=== PATIENT | male | born 1975 | race Caucasian/White ===

== ENCOUNTER 2016-10-13 05:52 | Observation (INO) | payer OTHER ==
[2016-10-11 13:43] VITALS: BMI 33.3
[2016-10-13] MEDS ORDERED: SODIUM CHLORIDE 0.9% 1,000 ML IV SCH (06:03)
[2016-10-13] MEDS ORDERED: ceFAZolin 2 GM in SODIUM CHLORIDE 0.9% 100 ML IVPB ONE (06:03)
[2016-10-13] MEDS ORDERED: ceFAZolin 1,000 MG in SODIUM CHLORIDE 0.9% IRRIGATIO 250 ML IRRIGATION ONE (06:03)
[2016-10-13] MEDS ORDERED: LACTATED RINGERS 1,000 ML IV SCH (06:03)
[2016-10-13] MEDS ORDERED: MIDAZOLAM 2 MG/2 ML VIAL ONE (07:24)
[2016-10-13] MEDS ORDERED: fentaNYL (PF) 50 MCG/ML 2 ML AMP ONE (07:24)
[2016-10-13] MEDS ORDERED: SUCCINYLCHOLINE CHLORIDE 100 MG/5 ML SYR IV ONE (07:24)
[2016-10-13] MEDS ORDERED: LIDOCAINE 1% INJ 10MG/ML (20 ML MDV) ONE (07:24)
[2016-10-13] MEDS ORDERED: ePHEDrine 50 MG/ML 1 ML AMP ONE (07:24)
[2016-10-13] MEDS ORDERED: PROPOFOL 10 MG/ML 20 ML VIAL IV ONE (07:24)
[2016-10-13] MEDS ORDERED: IOHEXOL 350 MG/ML 50ML BOTTLE INJ ONE (08:08)
[2016-10-13] MEDS ORDERED: SODIUM CHLORIDE 0.9% 500 ML IV ONE (08:25)
[2016-10-13] MEDS ORDERED: LIDOCAINE 1% INJ 10MG/ML (10 ML MDV) SQ ONE (08:31)
[2016-10-13] MEDS ORDERED: HYDROcodone/APAP 5-325MG 1 EACH TAB PO PRN (09:59)
[2016-10-13] MEDS ORDERED: ACETAMINOPHEN IV (For NPO) 1,000 MG in EMPTY BAG 1 BAG IVPB ONE (09:59)
[2016-10-13] MEDS ORDERED: LACTATED RINGERS 1,000 ML IV ONE (10:00)
[2016-10-13] MEDS ORDERED: LIDOCAINE 1% INJ 10MG/ML (20 ML MDV) SQ ONE (10:10)
--- NOTE | 2016-10-13 10:18 | P.PCN ---
Preoperative Diagnosis: Loop explant under general anesthesia. Patient was brought to the EP lab in a fasting state. Written informed consent was obtained prior to the procedure. The subcutaneous device was successfully explanted under local anesthesia. Preoperative antibiotics were administered. The wound was closed in layers and dressed per protocol. Result: Successful loop monitor explantation.
--- NOTE | 2016-10-13 10:27 | CE ---
DATE OF SERVICE: A 40-year-old male patient who has a loop monitor implanted for episodes of possible altered consciousness. The patient has Down's syndrome and is unable to give a clear history. The loop monitor showed several episodes of sinus pauses and sinus arrest greater than 6 seconds. He has underlying right bundle branch block on QRS morphology. He is brought in for dual-chamber pacemaker implantation. The patient was brought to the EP Lab in a fasting state. Written informed consent was obtained prior to the procedure. The left shoulder area was prepped and draped as per protocol. The procedure was performed under general anesthesia. The incision was made in the deltopectoral groove and carried down to level of the pectoralis muscle, left anterior vein access was obtained, subfascial pocket was made, two leads are positioned in the right heart. The atrial lead was a [employer] 45 cm in [employer] MRI, model #7740, serial number [id number]. The P-waves were 2.3 mV, pacing threshold 0.6 v at 0.4 ms, pacing impedance of 831 ohms. The 10 v test was negative. The RV lead was a [employer] MRI RV lead, 59 cm in length and model #7742, serial #[id number]. The R waves were 12 mV, pacing threshold 0.4 v at 0.4 ms, pacing impedance of 1075 ohms. Terminal tests are negative. Both leads were secured to the underlying pectoralis fascia using 2 nonabsorbable sutures. Pocket was irrigated with antibiotic solution. Leads are connected to the generator, [employer] accolade MRI, model #L331, serial #[id number]. The lead and the generator were placed in the subfascial pocket. The wound was closed in 3 layers and dressed per protocol. 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 Patient tolerated the procedure well without any acute complications.
--- NOTE | 2016-10-13 10:31 | LTR ---
October 13, 2016 RE: Silviano Quiñones Dear Juan C; I had the pleasure of seeing Gage Quiñones in electrophysiology and follow up. Gage underwent a dual-chamber pacemaker implantation for recurrent episodes of sinus pauses greater than 3 seconds. He has an underlying right bundle branch block, I implanted a dual chamber pacemaker for him successfully under general anesthesia. He will be admitted for a night on telemetry and then he will be discharged home tomorrow after completion of his IV antibiotics. Thank you for entrusting me with the care of your patient. Warm regards. Sincerely, JEFERSON URIOSTEGUI MD
[2016-10-13 10:51] VITALS: RESP 16
[2016-10-13] MEDS ORDERED: ONDANSETRON 4 MG/2 ML VIAL ONE (13:02)
[2016-10-13] MEDS ORDERED: ONDANSETRON 4 MG/2 ML VIAL IVP PRN (13:06)
[2016-10-13] MEDS: ceFAZolin 2 GM in SODIUM CHLORIDE 0.9% 100 ML IVPB SCH ×2 (15:53→21:51)
[2016-10-13] MEDS: ACETAMINOPHEN TAB 325 MG TAB PO PRN (21:00)
[2016-10-14] MEDS: ceFAZolin 2 GM in SODIUM CHLORIDE 0.9% 100 ML IVPB SCH (03:10)
[2016-10-14 04:25] VITALS: PULSE 62; TEMP 97.7
[2016-10-14] MEDS: ACETAMINOPHEN TAB 325 MG TAB PO PRN (06:03)
[2016-10-14] MEDS ORDERED: LEVOTHYROXINE 50 MCG TAB PO SCH (06:30)
--- NOTE | 2016-10-14 08:02 | XR ---
EXAMINATION TYPE: XR chest 2V DATE OF EXAM: 10/14/2016 6:14 AM COMPARISON: NONE TECHNIQUE: PA and lateral views submitted. HISTORY: Pacemaker placement FINDINGS: The lungs are clear and there is no pneumothorax, pleural effusion, or focal pneumonia. Postoperati ve changes are seen double lead pacemaker. Position appears satisfactory. IMPRESSION: 1. No postprocedural complication.
[2016-10-14 08:07] VITALS: BP 137/76
--- NOTE | 2016-10-14 08:32 | DS ---
DATE OF ADMISSION: 10/14/2016 DATE OF DISCHARGE: Silviano Quiñones is a 40-year-old male patient with Down's syndrome with VSD, status post VSD repair many years back with mild cardiomyopathy and an underlying right bundle branch block with a Loop monitor implant for possible syncopal spells. Loop monitor showed episodes of sinus pauses and sinus arrest and therefore, dual-chamber pacemaker was implanted yesterday. He is doing well from a cardiac standpoint. His vitals are stable. He has minimal pain. Blood pressure is 117/69 mmHg, pulse rate is in the 60s. He is afebrile, 97 degree Fahrenheit. Head and neck examination is normal. Heart sounds S1, S2 normal. Breath sounds are equal bilaterally. Abdomen is soft and nontender. Pacer site has healed well. There is no hematoma. IMPRESSION: 1. Sick sinus syndrome, sinus pauses and sinus arrest, status post dual chamber pacemaker implantation. 2. Down syndrome. 3. VSD status post repair many years back, open heart surgery. 4. Mild cardiomyopathy. 5. Right bundle branch block pattern and QRS. SUGGEST: Start Toprol-XL 25 mg daily since he does have a cardiomyopathy to his current regimen and follow up in the office in 5 days. All instructions were given to the parents and was also explained to the patient.
[2016-10-14] MEDS ORDERED: METOPROLOL SUCCINATE (ER) 50 MG TAB.ER.24H PO SCH (09:00)
[2016-10-14] MEDS ORDERED: COLCHICIN-PROBENECID 0.5-500MG 1 EACH TAB PO SCH (09:00)
[2016-10-14] MEDS ORDERED: CHOLECALCIFEROL 1,000 UNIT TAB PO SCH (12:00)
[2016-10-14] MEDS ORDERED: MULTIVITAMINS, THERA 1 EACH TAB PO SCH (12:00)
== END 2016-10-14 10:50 | disposition home or self-care (01) ==
LOC: CATHEP 05:52 → 3OBS 17:28 → CATHEP 10-14 06:13 → 3OBS 10-14 06:13
PROVIDERS: ADMIT Internal Medicine Clinical Cardiac Electrophysiology; ATTEND Internal Medicine Clinical Cardiac Electrophysiology
DX: I49.5 Sick sinus syndrome (principal); Q90.9 Down syndrome, unspecified; Q21.0 Ventricular septal defect; I42.9 Cardiomyopathy, unspecified; I45.10 Unspecified right bundle-branch block; Z87.74 Personal history of (corrected) congenital malformations of heart and circulatory system; I45.5 Other specified heart block; Z88.0 Allergy status to penicillin; Z88.2 Allergy status to sulfonamides; Z79.899 Other long term (current) drug therapy; Z82.49 Family history of ischemic heart disease and other diseases of the circulatory system; E03.9 Hypothyroidism, unspecified; I44.4 Left anterior fascicular block
CPT/HCPCS: 33208; C1785; C1898; 71020; 84132; 96365; 96366

== ENCOUNTER → 2017-07-03 | Outpatient (CLI) | payer OTHER ==
--- NOTE | 2017-07-03 16:31 | US ---
EXAMINATION TYPE: US kidneys/renal and bladder DATE OF EXAM: 07/03/2017 COMPARISON: NONE CLINICAL HISTORY: R94.4 ABN KIDNEY FUNCTIONS. Down syndrome EXAM MEASUREMENTS: Right Kidney: 9.0 x 4.1 x 4.2 cm Left Kidney: 9.6 x 4.3 x 4.7 cm Post Void Residual Volume: 36.4 mL Right Kidney: No hydronephrosis or masses seen Left Kidney: No hydronephrosis or masses seen Bladder: wnl Bilateral Jets seen: left side seen Normal Post Void Residual: Yes There is no evidence for hydronephrosis at this point in time. No nephrolithiasis is seen. No thuy s are identified. The urinary bladder is anechoic. Bilateral ureteral jets are seen. IMPRESSION: 1. Normal renal ultrasound. 2. Right renal jet was not identified during this examination. No abnormal right renal collecting sys tem is evident however.
== END | disposition home or self-care (01) ==
LOC: RADUSWWP 13:57
PROVIDERS: ATTEND Family Medicine
DX: R94.4 Abnormal results of kidney function studies (principal)
CPT/HCPCS: 76770

== ENCOUNTER 2019-07-28 15:14 | Observation (INO) | payer OTHER ==
[2019-07-28] MEDS ORDERED: ASPIRIN 81 MG PO STA (15:46)
[2019-07-28] MEDS ORDERED: NITROGLYCERIN OINT 1 INCH/GM PACKET TOPICAL STA (15:46)
--- NOTE | 2019-07-28 15:51 | ED ---
General Adult HPI - General Chief complaint: Chest Pain Stated complaint: Chest pain Time Seen by Provider: 07/28/19 15:27 Source: family, RN notes reviewed Mode of arrival: wheelchair Limitations: no limitations - History of Present Illness Initial comments: Patient is a pleasant 43-year-old male with history of Down syndrome presenting to emergency department with family for reported chest discomfort. Onset of symptoms was around 1 hour ago. Symptoms have improved and are mild at this time. No reported dyspnea or nausea. Patient was a little bit sweaty earlier. Patient did have similar symptoms around 9 months ago and had stress test howeve r stress test was inconclusive. History is somewhat limited secondary to patient's history of Down syndrome. - Related Data Home Medications Medication Instructions Recorded Confirmed Levothyroxine Sodium [Synthroid] 50 mcg PO DAILY 10/01/13 07/28/19 Cholecalciferol [Vitamin D3] 3,000 unit PO DAILY 01/14/16 07/28/19 Multivitamins, Thera [Multivitamin 1 tab PO DAILY 10/11/16 07/28/19 (formulary)] ALPRAZolam [Xanax] 0.25 mg PO Q6H PRN 07/28/19 07/28/19 Allopurinol [Zyloprim] 300 mg PO DAILY 07/28/19 07/28/19 Ciprofloxacin-Dexameth [Ciprodex 4 drops BOTH EARS BID PRN 07/28/19 07/28/19 Otic Susp] Colchicine [Colcrys] 0.6 mg PO BID PRN 07/28/19 07/28/19 Metoprolol Succinate [Toprol XL] 50 mg PO DAILY 07/28/19 07/28/19 Pravastatin Sodium [Pravachol] 20 mg PO DAILY 07/28/19 07/28/19 Allergies Allergy/AdvReac Type Severity Reaction Status Date / Time clindamycin AdvReac Intermediate reddened Verified 07/28/19 15:55 skin Review of Systems ROS Statement: Those systems with pertinent positive or pertinent negative responses have been documented in the HPI. ROS Other: All systems not noted in ROS Statement are negative. Constitutional: Denies: fever Eyes: Denies: eye pain ENT: Denies: ear pain Respiratory: Denies: cough Cardiovascular: Reports: chest pain Endocrine: Denies: fatigue Genitourinary: Denies: dysuria Musculoskeletal: Denies: back pain Skin: Denies: rash Neurological: Denies: weakness Past Medical History Past Medical History: Hearing Disorder / Deafness, Syncope, Thyroid Disorder Additional Past Medical History / Comment(s): DOWN SYNDROME, HX OF VSD REPAIR AT 4 YEARS OLD., MOTHER STATES HE HAS HX OF PASSING OUT SHE STATES HIS HEART STOPS., gout History of Any Multi-Drug Resistant Organisms: None Reported Past Surgical History: Ear Surgery, Heart Catheterization, Pacemaker Additional Past Surgical History / Comment(s): VSD REPAIR AT 4 YEARS OLD WITH HEART CATH PRIOR. , RECONSTRUTIVE EAR SURGERY. loop recorder Past Anesthesia/Blood Transfusion Reactions: Motion Sickness Type of Cardiac Device: Loop Past Psychological History: Anxiety Smoking Status: Never smoker Past Alcohol Use History: None Reported Past Drug Use History: None Reported - Past Family History Mother Family Medical History: Cancer Additional Family Medical History / Comment(s): BASAL SKIN CANCER General Exam Limitations: no limitations General appearance: alert, in no apparent distress Head exam: Present: normocephalic Eye exam: Present: normal appearance Neck exam: Present: normal inspection Respiratory exam: Present: normal lung sounds bilaterally, chest wall tenderness (Mild anterior chest wall tenderness) Cardiovascular Exam: Present: regular rate, normal rhythm Expanded Peripheral pulses: 2+: Radial (R), Radial (L), Posterior Tibialis (R), Posterior Tibialis (L), Dorsalis Pedis (R), Dorsalis Pedis (L) GI/Abdominal exam: Present: soft. Absent: tenderness Extremities exam: Present: normal inspection. Absent: pedal edema, calf tenderness Neurological exam: Present: alert Psychiatric exam: Present: normal affect, normal mood Skin exam: Present: normal color Course Vital Signs 07/28/19 15:16 Temperature 98.2 F Pulse Rate 74 Respiratory 18 Rate Blood Pressure 155/79 O2 Sat by Pulse 98 Oximetry EKG Findings - EKG Comments: EKG Findings:: Sinus bradycardia at 57. For screening AV block MN of 218. QRS 134. QT 4:30. QTC 418. Left axis. Right bundle branch block. No acute ST change. Medical Decision Making - Medical Decision Making Patient reevaluated and resting comfortably in bed. Patient family updated on results and plan. Case was crusted detail with Dr. Ardon who will admit his patient. - Lab Data Result diagrams: 07/28/19 16:01 07/28/19 16:01 Lab Results 07/28/19 07/28/19 07/28/19 Range/Units 16:01 16:01 16:01 WBC 5.5 (3.8-10.6) k/uL RBC 5.11 (4.30-5.90) m/uL Hgb 16.9 (13.0-17.5) gm/dL Hct 50.1 (39.0-53.0) % MCV 98.1 (80.0-100.0) fL MCH 33.0 (25.0-35.0) pg MCHC 33.6 (31.0-37.0) g/dL RDW 13.1 (11.5-15.5) % Plt Count 160 (150-450) k/uL Neutrophils % 65 % Lymphocytes % 24 % Monocytes % 6 % Eosinophils % 2 % Basophils % 1 % Neutrophils # 3.6 (1.3-7.7) k/uL Lymphocytes # 1.3 (1.0-4.8) k/uL Monocytes # 0.3 (0-1.0) k/uL Eosinophils # 0.1 (0-0.7) k/uL Basophils # 0.1 (0-0.2) k/uL PT 9.7 (9.0-12.0) sec INR 0.9 (<1.2) APTT 22.5 (22.0-30.0) sec D-Dimer 0.36 (<0.60) mg/L FEU Sodium 138 (137-145) mmol/L Potassium 4.4 (3.5-5.1) mmol/L Chloride 103 (98-107) mmol/L Carbon Dioxide 29 (22-30) mmol/L Anion Gap 6 mmol/L BUN 22 H (9-20) mg/dL Creatinine 1.07 (0.66-1.25) mg/dL Est GFR (CKD-EPI)AfAm >90 (>60 ml/min/1.73 sqM) Est GFR (CKD-EPI)NonAf 85 (>60 ml/min/1.73 sqM) Glucose 106 H (74-99) mg/dL Calcium 8.7 (8.4-10.2) mg/dL Magnesium 2.1 (1.6-2.3) mg/dL Total Bilirubin 0.4 (0.2-1.3) mg/dL AST 34 (17-59) U/L ALT 37 (4-49) U/L Alkaline Phosphatase 81 (38-126) U/L Troponin I (0.000-0.034) ng/mL Total Protein 6.8 (6.3-8.2) g/dL Albumin 3.9 (3.5-5.0) g/dL 07/28/19 Range/Units 16:01 WBC (3.8-10.6) k/uL RBC (4.30-5.90) m/uL Hgb (13.0-17.5) gm/dL Hct (39.0-53.0) % MCV (80.0-100.0) fL MCH (25.0-35.0) pg MCHC (31.0-37.0) g/dL RDW (11.5-15.5) % Plt Count (150-450) k/uL Neutrophils % % Lymphocytes % % Monocytes % % Eosinophils % % Basophils % % Neutrophils # (1.3-7.7) k/uL Lymphocytes # (1.0-4.8) k/uL Monocytes # (0-1.0) k/uL Eosinophils # (0-0.7) k/uL Basophils # (0-0.2) k/uL PT (9.0-12.0) sec INR (<1.2) APTT (22.0-30.0) sec D-Dimer (<0.60) mg/L FEU Sodium (137-145) mmol/L Potassium (3.5-5.1) mmol/L Chloride (98-107) mmol/L Carbon Dioxide (22-30) mmol/L Anion Gap mmol/L BUN (9-20) mg/dL Creatinine (0.66-1.25) mg/dL Est GFR (CKD-EPI)AfAm (>60 ml/min/1.73 sqM) Est GFR (CKD-EPI)NonAf (>60 ml/min/1.73 sqM) Glucose (74-99) mg/dL Calcium (8.4-10.2) mg/dL Magnesium (1.6-2.3) mg/dL Total Bilirubin (0.2-1.3) mg/dL AST (17-59) U/L ALT (4-49) U/L Alkaline Phosphatase (38-126) U/L Troponin I <0.012 (0.000-0.034) ng/mL Total Protein (6.3-8.2) g/dL Albumin (3.5-5.0) g/dL - Radiology Data Radiology results: image reviewed (Chest x-ray shows no acute process) Disposition Clinical Impression: Chest pain Disposition: ADMITTED IP TO THIS HOSP Is patient prescribed a controlled substance at d/c from ED?: No Referrals: Juan C Ardon MD [Primary Care Provider] - 1-2 days Decision Time: 16:48
[2019-07-28 16:12] LABS: Basophils # (A) 0.1 k/uL (0-0.2); Basophils % (A) 1 %; Eosinophils # (A) 0.1 k/uL (0-0.7); Eosinophils % (A) 2 %; HCT 50.1 % (39.0-53.0); HGB 16.9 gm/dL (13.0-17.5); Lymphocytes # (A) 1.3 k/uL (1.0-4.8); Lymphocytes % (A) 24 %; MCHC 33.6 g/dL (31.0-37.0); MCV 98.1 fL (80.0-100.0); Mean Platelet Volume 6.9; Monocytes # (A) 0.3 k/uL (0-1.0); Monocytes % (A) 6 %; Neutrophils # (A) 3.6 k/uL (1.3-7.7); Neutrophils % (A) 65 %; Platelet Count 160 k/uL (150-450); RBC 5.11 m/uL (4.30-5.90); RDW 13.1 % (11.5-15.5); WBC 5.5 k/uL (3.8-10.6)
[2019-07-28 16:26] LABS: ALT 37 U/L (4-49); AST 34 U/L (17-59); African American GFR (CKD) >90 (>60 ml/min/1.73 sqM); Albumin 3.9 g/dL (3.5-5.0); Alkaline Phosphatase 81 U/L (38-126); Anion Gap 6 mmol/L; Blood Urea Nitrogen 22 mg/dL (9-20); Calcium 8.7 mg/dL (8.4-10.2); Carbon Dioxide 29 mmol/L (22-30); Chloride 103 mmol/L (98-107); Glucose 106 mg/dL (74-99); Magnesium 2.1 mg/dL (1.6-2.3); Non-African American GFR(CKD) 85 (>60 ml/min/1.73 sqM); Potassium 4.4 mmol/L (3.5-5.1); Sodium 138 mmol/L (137-145); Total Bilirubin 0.4 mg/dL (0.2-1.3); Total Protein 6.8 g/dL (6.3-8.2)
[2019-07-28 16:33] LABS: D-Dimer 0.36 mg/L FEU (<0.60); INR 0.9 (<1.2); Partial Thromboplastin Time 22.5 sec (22.0-30.0); Prothrombin Time 9.7 sec (9.0-12.0)
--- NOTE | 2019-07-28 16:38 | XR ---
EXAMINATION TYPE: XR chest 2V DATE OF EXAM: 07/28/2019 COMPARISON: 10/14/2016 HISTORY: Check placement TECHNIQUE: FINDINGS: There is no heart failure nor confluent pneumonic infiltrate. Costophrenic angles are clear . There is a left axillary pacemaker with lead tips in the right ventricle. There is no pleural effus ion. There are chest leads. IMPRESSION: No active cardiopulmonary disease. No change.
[2019-07-28] MEDS ORDERED: NITROGLYCERIN SL TABS 0.4 MG TAB SUBLINGUAL PRN (16:48)
[2019-07-28] MEDS: NITROGLYCERIN OINT 1 INCH/GM PACKET TOPICAL SCH ×2 (18:23→23:46)
[2019-07-29 04:17] LABS: Cholesterol 156 mg/dL (<200); HDL Cholesterol 48 mg/dL (40-60); LDL Cholesterol,Calculated 94 mg/dL (0-99); Triglycerides 70 mg/dL (<150)
[2019-07-29] MEDS: NITROGLYCERIN OINT 1 INCH/GM PACKET TOPICAL SCH (05:31)
[2019-07-29] MEDS ORDERED: ALPRAZolam 0.25 MG TAB PO PRN (06:05)
[2019-07-29] MEDS ORDERED: COLCHICINE 0.6 MG EACH PO PRN (06:05)
[2019-07-29] MEDS ORDERED: LEVOTHYROXINE 50 MCG TAB PO SCH (06:30)
[2019-07-29] MEDS ORDERED: MORPHINE SULFATE 2 MG/ML SYRINGE IVP ONE (06:30)
[2019-07-29] MEDS ORDERED: CIPROFLOXACIN-DEXAMETH 0.3-0.1% DROPS 7.5 ML BTL BOTH EARS PRN (07:00)
[2019-07-29] MEDS ORDERED: DOBUTamine DRIP for NUC MED 500 MG in DEXTROSE/WATER 1 250ML.BAG IV ONE (08:18)
--- NOTE | 2019-07-29 08:19 | P.CRDCN ---
History of Present Illness Consult date: 07/29/19 Requesting physician: Juan C Ardon Consult reason: chest pain Chief complaint: Chest pain, diaphoresis History of present illness: This is a pleasant 43-year-old gentleman who has Down's syndrome, his family is at the bedside, most of the history was obtained from them. The patient has a family history of premature coronary artery disease, he also has history of permanent pacemaker implantation by Dr. Lawton, he follows with Dr. Lawton in the office. Patient was brought to the hospital because of symptoms of chest discomfort. According to the family member at bedside, he was laying down in bed, had his hand over his pacemaker, and was in tears, he was mildly diaphoretic and complaining that it hurts. Chest x-ray did not reveal any active cardiopulmonary disease. EKG shows a sinus bradycardia with a first- degree AV block and a right bundle branch block pattern. Blood pressure 114/60 with a heart rate in the 50s, 93% on room air. White blood cell count 5.5, hemoglobin 16.9, platelet count 160. D-dimer 0.3. Sodium 138, potassium 4.4, BUN 22, creatinine 1.0. Magnesium 2.1. Troponins are negative 3. At the time of my examination this morning, patient is sitting up in bed coloring, very comfortable, denies any chest pain at present and his breathing is stable. Past Medical History Past Medical History: Hearing Disorder / Deafness, Syncope, Thyroid Disorder Additional Past Medical History / Comment(s): DOWN SYNDROME, HX OF VSD REPAIR AT 4 YEARS OLD., MOTHER STATES HE HAS HX OF PASSING OUT SHE STATES HIS HEART STOPS., gout History of Any Multi-Drug Resistant Organisms: None Reported Past Surgical History: Ear Surgery, Heart Catheterization, Pacemaker Additional Past Surgical History / Comment(s): VSD REPAIR AT 4 YEARS OLD WITH HEART CATH PRIOR. , RECONSTRUTIVE EAR SURGERY. loop recorder, spot on eyelid Past Anesthesia/Blood Transfusion Reactions: Motion Sickness Type of Cardiac Device: Permanent Pacemaker Device Placement Date:: 2017 Past Psychological History: Anxiety Smoking Status: Never smoker Past Alcohol Use History: None Reported Past Drug Use History: None Reported - Past Family History Mother Family Medical History: Cancer Additional Family Medical History / Comment(s): BASAL SKIN CANCER Medications and Allergies Home Medications Medication Instructions Recorded Confirmed Type Levothyroxine Sodium [Synthroid] 50 mcg PO DAILY 04/29/14 02/23/20 History Cholecalciferol [Vitamin D3] 3,000 unit PO DAILY 01/14/16 07/28/19 History Multivitamins, Thera [Multivitamin 1 tab PO DAILY 10/11/16 07/28/19 History (formulary)] ALPRAZolam [Xanax] 0.25 mg PO Q6H PRN 07/28/19 07/28/19 History Allopurinol [Zyloprim] 300 mg PO DAILY 07/28/19 07/28/19 History Ciprofloxacin-Dexameth [Ciprodex 4 drops BOTH EARS BID PRN 07/28/19 07/28/19 History Otic Susp] Colchicine [Colcrys] 0.6 mg PO BID PRN 07/28/19 07/28/19 History Metoprolol Succinate [Toprol XL] 50 mg PO DAILY 07/28/19 07/28/19 History Pravastatin Sodium [Pravachol] 20 mg PO DAILY 07/28/19 07/28/19 History Allergies Allergy/AdvReac Type Severity Reaction Status Date / Time clindamycin AdvReac Intermediate reddened Verified 07/28/19 15:55 skin Physical Exam Vitals: Vital Signs Temp Pulse Pulse Resp BP BP Pulse Ox 07/29/19 04:00 97.2 F L 57 L 18 114/68 93 L 07/29/19 00:00 97.7 F 50 L 18 106/59 95 07/28/19 20:17 97 07/28/19 20:00 97 F L 59 L 18 121/61 96 07/28/19 17:35 98.4 F 69 16 118/61 96 07/28/19 17:33 96 07/28/19 17:00 57 L 18 132/76 98 07/28/19 16:30 64 18 138/71 96 07/28/19 15:25 67 07/28/19 15:16 98.2 F 74 18 155/79 98 Intake and Output 07/28/19 07/29/19 07/29/19 22:59 06:59 14:59 Other: Voiding Method Toilet Toilet # Voids 1 Weight 90.718 kg 91.6 kg PHYSICAL EXAMINATION: GENERAL: 43-year-old gentleman in no acute distress at the time of my examination HEENT: Head is atraumatic, normocephalic. Pupils equal, round. Sclera anic teric. Conjunctiva are clear. Mucous membranes of the mouth are moist. Neck is supple. There is no elevated jugular venous pressure. No carotid bruit is heard. HEART EXAMINATION: Heart S1, S2 normal. No murmur or gallop heard. CHEST EXAMINATION: Lungs are clear to auscultation and precussion. No chest wall tenderness is noted on palpation or with deep breathing. ABDOMEN: Soft, nontender. Bowel sounds are heard. No organomegaly noted. EXTREMITIES: 2+ peripheral pulses with no evidence of peripheral edema and no calf tenderness noted. NEUROLOGIC patient is awake, alert and oriented 3 . . Results 07/28/19 16:01 07/28/19 16: Cardiac Enzymes 07/28/19 07/28/19 07/28/19 Range/Units 16:01 16: 16: WBC 5.5 (3.8-10.6) k/uL RBC 5.11 (4.30-5.90) m/uL Hgb 16.9 (13.0-17.5) gm/dL Hct 50.1 (39.0-53.0) % MCV 98.1 (80.0-100.0) fL MCH 33.0 (25.0-35.0) pg MCHC 33.6 (31.0-37.0) g/dL RDW 13.1 (11.5-15.5) % Plt Count 160 (150-450) k/uL Neutrophils % 65 % Lymphocytes % 24 % Monocytes % 6 % Eosinophils % 2 % Basophils % 1 % Neutrophils # 3.6 (1.3-7.7) k/uL Lymphocytes # 1.3 (1.0-4.8) k/uL Monocytes # 0.3 (0-1.0) k/uL Eosinophils # 0.1 (0-0.7) k/uL Basophils # 0.1 (0-0.2) k/uL PT 9.7 (9.0-12.0) sec INR 0.9 (<1.2) APTT 22.5 (22.0-30.0) sec D-Dimer 0.36 (<0.60) mg/L FEU Sodium 138 (137-145) mmol/L Potassium 4.4 (3.5-5.1) mmol/L Chloride 103 (98-107) mmol/L Carbon Dioxide 29 (22-30) mmol/L Anion Gap 6 mmol/L BUN 22 H (9-20) mg/dL Creatinine 1.07 (0.66-1.25) mg/dL Est GFR (CKD-EPI)AfAm >90 (>60 ml/min/1.73 sqM) Est GFR (CKD-EPI)NonAf 85 (>60 ml/min/1.73 sqM) Glucose 106 H (74-99) mg/dL Calcium 8.7 (8.4-10.2) mg/dL Magnesium 2.1 (1.6-2.3) mg/dL Total Bilirubin 0.4 (0.2-1.3) mg/dL AST 34 (17-59) U/L ALT 37 (4-49) U/L Alkaline Phosphatase 81 (38-126) U/L Troponin I (0.000-0.034) ng/mL Total Protein 6.8 (6.3-8.2) g/dL Albumin 3.9 (3.5-5.0) g/dL Triglycerides (<150) mg/dL Cholesterol (<200) mg/dL LDL Cholesterol, Calc (0-99) mg/dL HDL Cholesterol (40-60) mg/dL 07/28/19 07/28/19 07/29/19 Range/Units 16:01 21:48 03:34 WBC (3.8-10.6) k/uL RBC (4.30-5.90) m/uL Hgb (13.0-17.5) gm/dL Hct (39.0-53.0) % MCV (80.0-100.0) fL MCH (25.0-35.0) pg MCHC (31.0-37.0) g/dL RDW (11.5-15.5) % Plt Count (150-450) k/uL Neutrophils % % Lymphocytes % % Monocytes % % Eosinophils % % Basophils % % Neutrophils # (1.3-7.7) k/uL Lymphocytes # (1.0-4.8) k/uL Monocytes # (0-1.0) k/uL Eosinophils # (0-0.7) k/uL Basophils # (0-0.2) k/uL PT (9.0-12.0) sec INR (<1.2) APTT (22.0-30.0) sec D-Dimer (<0.60) mg/L FEU Sodium (137-145) mmol/L Potassium (3.5-5.1) mmol/L Chloride (98-107) mmol/L Carbon Dioxide (22-30) mmol/L Anion Gap mmol/L BUN (9-20) mg/dL Creatinine (0.66-1.25) mg/dL Est GFR (CKD-EPI)AfAm (>60 ml/min/1.73 sqM) Est GFR (CKD-EPI)NonAf (>60 ml/min/1.73 sqM) Glucose (74-99) mg/dL Calcium (8.4-10.2) mg/dL Magnesium (1.6-2.3) mg/dL Total Bilirubin (0.2-1.3) mg/dL AST (17-59) U/L ALT (4-49) U/L Alkaline Phosphatase (38-126) U/L Troponin I <0.012 <0.012 <0.012 (0.000-0.034) ng/mL Total Protein (6.3-8.2) g/dL Albumin (3.5-5.0) g/dL Triglycerides (<150) mg/dL Cholesterol (<200) mg/dL LDL Cholesterol, Calc (0-99) mg/dL HDL Cholesterol (40-60) mg/dL 07/29/19 Range/Units 03:34 WBC (3.8-10.6) k/uL RBC (4.30-5.90) m/uL Hgb (13.0-17.5) gm/dL Hct (39.0-53.0) % MCV (80.0-100.0) fL MCH (25.0-35.0) pg MCHC (31.0-37.0) g/dL RDW (11.5-15.5) % Plt Count (150-450) k/uL Neutrophils % % Lymphocytes % % Monocytes % % Eosinophils % % Basophils % % Neutrophils # (1.3-7.7) k/uL Lymphocytes # (1.0-4.8) k/uL Monocytes # (0-1.0) k/uL Eosinophils # (0-0.7) k/uL Basophils # (0-0.2) k/uL PT (9.0-12.0) sec INR (<1.2) APTT (22.0-30.0) sec D-Dimer (<0.60) mg/L FEU Sodium (137-145) mmol/L Potassium (3.5-5.1) mmol/L Chloride (98-107) mmol/L Carbon Dioxide (22-30) mmol/L Anion Gap mmol/L BUN (9-20) mg/dL Creatinine (0.66-1.25) mg/dL Est GFR (CKD-EPI)AfAm (>60 ml/min/1.73 sqM) Est GFR (CKD-EPI)NonAf (>60 ml/min/1.73 sqM) Glucose (74-99) mg/dL Calcium (8.4-10.2) mg/dL Magnesium (1.6-2.3) mg/dL Total Bilirubin (0.2-1.3) mg/dL AST (17-59) U/L ALT (4-49) U/L Alkaline Phosphatase (38-126) U/L Troponin I (0.000-0.034) ng/mL Total Protein (6.3-8.2) g/dL Albumin (3.5-5.0) g/dL Triglycerides 70 (<150) mg/dL Cholesterol 156 (<200) mg/dL LDL Cholesterol, Calc 94 (0-99) mg/dL HDL Cholesterol 48 (40-60) mg/dL Coagulation 07/28/19 Range/Units 16:01 PT 9.7 (9.0-12.0) sec APTT 22.5 (22.0-30.0) sec Lipids 07/29/19 Range/Units 03:34 Triglycerides 70 (<150) mg/dL Cholesterol 156 (<200) mg/dL HDL Cholesterol 48 (40-60) mg/dL CBC 07/28/19 Range/Units 16:01 WBC 5.5 (3.8-10.6) k/uL RBC 5.11 (4.30-5.90) m/uL Hgb 16.9 (13.0-17.5) gm/dL Hct 50.1 (39.0-53.0) % Plt Count 160 (150-450) k/uL Comprehensive Metabolic Panel 07/28/19 Range/Units 16:01 Sodium 138 (137-145) mmol/L Potassium 4.4 (3.5-5.1) mmol/L Chloride 103 (98-107) mmol/L Carbon Dioxide 29 (22-30) mmol/L BUN 22 H (9-20) mg/dL Creatinine 1.07 (0.66-1.25) mg/dL Glucose 106 H (74-99) mg/dL Calcium 8.7 (8.4-10.2) mg/dL AST 34 (17-59) U/L ALT 37 (4-49) U/L Alkaline Phosphatase 81 (38-126) U/L Total Protein 6.8 (6.3-8.2) g/dL Albumin 3.9 (3.5-5.0) g/dL Current Medications Generic Name Dose Route Start Last Admin Trade Name Freq PRN Reason Stop Dose Admin Allopurinol 300 mg 07/29/19 09:00 Zyloprim PO DAILY [facility] Alprazolam 0.25 mg 07/29/19 06:05 Xanax PO Q6H PRN Anxiety Aspirin 325 mg 07/29/19 09:00 Aspirin PO DAILY [facility] Cholecalciferol 3,000 unit 07/29/19 09:00 Vitamin D3 (25 Mcg = 1000 Iu) PO DAILY [facility] Ciprofloxacin/Dexamethasone 4 drops 07/29/19 07:00 Ciprodex Otic Susp BOTH EARS BID PRN INFECTION Colchicine 0.6 mg 07/29/19 06:05 Colcrys PO BID PRN GOUT Levothyroxine Sodium 50 mcg 07/29/19 06:30 07/29/19 06:33 Synthroid PO 50 mcg DAILY@0630 [facility] Administration Metoprolol Succinate 50 mg 07/29/19 09:00 Toprol Xl PO DAILY [facility] Multivitamins 1 each 07/29/19 09:00 Theragran PO DAILY [facility] Nitroglycerin 0.4 mg 07/28/19 16:48 Nitrostat SUBLINGUAL Q5M PRN Chest Pain Nitroglycerin 1 inch 07/28/19 18:00 07/29/19 05:31 Nitro-Bid Oint TOPICAL 1 inch Q6HR [facility] Administration Pravastatin Sodium 20 mg 07/29/19 09:00 Pravachol PO DAILY [facility] Sodium Chloride 10 ml 07/28/19 21:00 07/28/19 23:46 Saline Flush IV 10 ml BID VERÓNICA Administration Intake and Output 07/28/19 07/29/19 07/29/19 22:59 06:59 14:59 Other: Voiding Method Toilet Toilet # Voids 1 Weight 90.718 kg 91.6 kg 07/28/19 16:01 07/28/19 16:01 EKG Interpretations (text) EKG shows a normal sinus rhythm with a right bundle branch block pattern, left anterior fascicular block Assessment and Plan Plan: Assessment and plan #1 chest pain, atypical for acute coronary syndrome. EKG shows normal sinus rhythm with a right bundle branch block pattern, nonspecific ST-T wave changes. Troponins are negative 3. #2 history of permanent pacemaker implantation #3 Downs syndrome #4 family history of premature coronary artery disease #5 hyperlipidemia Plan We will obtain an echocardiogram with Doppler study. We will also request a dobutamine echo be performed today. Interrogate pacemaker. If this is negative, from cardiology's perspective the patient may be able to be discharged home. We'll make him a follow-up appointment in the office with Dr. Lawton post discharge. DNP note has been reviewed, I agree with a documented findings and plan of care. Patient was seen and examined.
[2019-07-29] MEDS ORDERED: ALLOPURINOL 300 MG PO SCH (09:00)
[2019-07-29] MEDS ORDERED: ASPIRIN 325 MG TAB PO SCH (09:00)
[2019-07-29] MEDS ORDERED: ASPIRIN 81 MG PO SCH (09:00)
[2019-07-29] MEDS ORDERED: CHOLECALCIFEROL 1,000 UNIT TAB PO SCH (09:00)
[2019-07-29] MEDS ORDERED: PRAVASTATIN SODIUM 20 MG TAB PO SCH (09:00)
[2019-07-29] MEDS ORDERED: MULTIVITAMINS, THERA 1 EACH TAB PO SCH (09:00)
[2019-07-29] MEDS ORDERED: METOPROLOL SUCCINATE (ER) 50 MG TAB.ER.24H PO SCH (09:00)
--- NOTE | 2019-07-29 13:30 | P.HPIM ---
History of Present Illness H&P Date: 07/29/19 Chief Complaint: chest pain Gage is a 43 y/o WM with Down's Syndrome. He has a pacer and a h/o CAD. His mom & Dad were at bedside today. Last night Gage told his family he was having chest pain and they brought him to the ER. Due to hi Down's, He is somewhat difficult to understand. He reports the pain is now gone. This am the pain returned. [facility] and Morphine 1mg was given, resolving his sx. Telemetry shows NSR and atrial paced rhythm. Review of Systems ROS unobtainable: due to mental status Past Medical History Past Medical History: Hearing Disorder / Deafness, Syncope, Thyroid Disorder Additional Past Medical History / Comment(s): DOWN SYNDROME, HX OF VSD REPAIR AT 4 YEARS OLD., MOTHER STATES HE HAS HX OF PASSING OUT SHE STATES HIS HEART ST OPS., gout History of Any Multi-Drug Resistant Organisms: None Reported Past Surgical History: Ear Surgery, Heart Catheterization, Pacemaker Additional Past Surgical History / Comment(s): VSD REPAIR AT 4 YEARS OLD WITH HEART CATH PRIOR. , RECONSTRUTIVE EAR SURGERY. loop recorder, spot on eyelid Past Anesthesia/Blood Transfusion Reactions: Motion Sickness Type of Cardiac Device: Permanent Pacemaker Device Placement Date:: 2017 Past Psychological History: Anxiety Smoking Status: Never smoker Past Alcohol Use History: None Reported Past Drug Use History: None Reported - Past Family History Mother Family Medical History: Cancer Additional Family Medical History / Comment(s): BASAL SKIN CANCER Medications and Allergies Home Medications Medication Instructions Recorded Confirmed Type Levothyroxine Sodium [Synthroid] 50 mcg PO DAILY 10/01/13 07/28/19 History Cholecalciferol [Vitamin D3] 3,000 unit PO DAILY 01/14/16 07/28/19 History Multivitamins, Thera [Multivitamin 1 tab PO DAILY 10/11/16 07/28/19 History (formulary)] ALPRAZolam [Xanax] 0.25 mg PO Q6H PRN 07/28/19 07/28/19 History Allopurinol [Zyloprim] 300 mg PO DAILY 07/28/19 07/28/19 History Ciprofloxacin-Dexameth [Ciprodex 4 drops BOTH EARS BID PRN 07/28/19 07/28/19 History Otic Susp] Colchicine [Colcrys] 0.6 mg PO BID PRN 07/28/19 07/28/19 History Metoprolol Succinate [Toprol XL] 50 mg PO DAILY 07/28/19 07/28/19 History Pravastatin Sodium [Pravachol] 20 mg PO DAILY 07/28/19 07/28/19 History Allergies Allergy/AdvReac Type Severity Reaction Status Date / Time clindamycin AdvReac Intermediate reddened Verified 07/28/19 15:55 skin Physical Exam Vitals: Vital Signs Temp Pulse Pulse Resp BP BP Pulse Ox 07/29/19 12:00 60 18 127/82 95 07/29/19 10:00 98.1 F 51 L 18 122/66 98 07/29/19 04:00 97.2 F L 57 L 18 114/68 93 L 07/29/19 00:00 97.7 F 50 L 18 106/59 95 07/28/19 20:17 97 07/28/19 20:00 97 F L 59 L 18 121/61 96 07/28/19 17:35 98.4 F 69 16 118/61 96 07/28/19 17:33 96 07/28/19 17:00 57 L 18 132/76 98 07/28/19 16:30 64 18 138/71 96 07/28/19 15:25 67 07/28/19 15:16 98.2 F 74 18 155/79 98 Intake and Output 07/28/19 07/29/19 07/29/19 22:59 06:59 14:59 Other: Voiding Method Toilet Toilet Toilet # Voids 1 0 # Bowel Movements 0 Weight 90.718 kg 91.6 kg 91.6 kg GENERAL: white male who looks his age with obvious facial symmetry from Down's syndrome HEAD: Atraumatic, normocephalic. EYES: Pupils equal round and reactive to light, extraocular movements intact, sclera anicteric, conjunctiva are normal. ENT:nares patent, oropharynx clear without exudates. Moist mucous membranes. NECK: Normal range of motion, supple without lymphadenopathy or JVD, no thyromegaly LUNGS: Breath sounds CTAB no wheeze. No rales. HEART: regular rhythm, rate without significant murmurs, rubs or gallops.S1S2 Normal ABDOMEN: Soft, nontender, normoactive bowel sounds. No guarding, no rebound. No masses appreciated. EXTREMITIES: There is no significant edema or erythema. NEUROLOGICAL: Cranial nerves II through XII grossly intact. Normal speech, normal gait. PSYCH: Normal mood, normal affect. SKIN: Warm, Dry, normal turgor, Results CBC & Chem 7: 07/28/19 16:01 07/28/19 16:01 Labs: Abnormal Lab Results - Last 24 Hours (Table) 07/28/19 Range/Units 16:01 BUN 22 H (9-20) mg/dL Glucose 106 H (74-99) mg/dL Chest x-ray: report reviewed Thrombosis Risk Factor Assmnt - DVT/VTE Prophylaxis DVT/VTE Prophylaxis: Low risk, early ambulation encouraged - Choose All That Apply Each Factor Represents 1 point: Age 41-60 years, Obesity (BMI >25) Thrombosis Risk Factor Assessment Total Risk Factor Score: 2 Thrombosis Risk Factor Assessment Level: Low Risk Assessment and Plan (1) Unstable angina Current Visit: Yes Status: Acute Code(s): I20.0 - UNSTABLE ANGINA SNOMED Code(s): 4230716 (2) Gout Current Visit: Yes Status: Acute Code(s): M10.9 - GOUT, UNSPECIFIED SNOMED Code(s): 36224618 (3) Essential (primary) hypertension Current Visit: Yes Status: Acute Code(s): I10 - ESSENTIAL (PRIMARY) HYPERTENSION SNOMED Code(s): 38089226 (4) Pure hypercholesterolemia, unspecified Current Visit: Yes Status: Acute Code(s): E78.00 - PURE HYPERCHOLESTEROLEMIA, UNSPECIFIED SNOMED Code(s): 569203828 (5) Hypothyroidism Current Visit: Yes Status: Acute Code(s): E03.9 - HYPOTHYROIDISM, UNSPECIFIED SNOMED Code(s): 15032428 (6) Down's syndrome Current Visit: Yes Status: Acute Code(s): Q90.9 - DOWN SYNDROME, UNSPECIFIED SNOMED Code(s): 15646819 (7) Chest pain Current Visit: Yes Status: Acute Code(s): R07.9 - CHEST PAIN, UNSPECIFIED SNOMED Code(s): 02113365 Plan: consult cardiology, wait on recommdnations restart home meds keep npo other than sips for possible cardiology testing if testing negative and patient stable, will plan D/C later today with further outpatient f/u
[2019-07-29 16:12] VITALS: BP 114/56; PULSE 69; RESP 16; TEMP 97.3
--- NOTE | 2019-07-29 16:54 | P.DS ---
Providers Date of admission: 07/28/19 16:48 Expected date of discharge: 07/29/19 Attending physician: Juan C Ardon Consults: 07/28/19 16:48 Consult Physician Urgent Consulting Provider: Russ Lawton Consult Reason/Comments: cp Do you want consulting provider notified?: Yes Primary care physician: Juan C Ardon - Discharge Diagnosis(es) (1) Unstable angina Current Visit: Yes Status: Ruled-out (2) Gout Current Visit: Yes Status: Chronic (3) Essential (primary) hypertension Current Visit: Yes Status: Chronic (4) Pure hypercholesterolemia, unspecified Gage is a 43 y/o WM with Down's Syndrome. He has a pacer and a h/o CAD. His mom & Dad were at bedside today. Last night Gage told his family he was having chest pain and they brought him to the ER. Due to hi Down's, He is somewhat difficult to understand. He reports the pain is now gone. This am the pain returned. he had NTP [place] [facility] and Morphine 1mg was given, resolving his sx. Telemetry shows NSR and atrial paced rhythm. 07/29/2019: addendum patitent had negative Dobutamine stress test. pain resolved. Cleared by cardiology for D/C. Current Visit: Yes Status: Chronic (5) Hypothyroidism Current Visit: Yes Status: Chronic (6) Down's syndrome Current Visit: Yes Status: Chronic (7) Chest pain Current Visit: Yes Status: Acute Priority: High (8) Status cardiac pacemaker Current Visit: Yes Status: Acute Hospital Course: Gage is a 43 y/o WM with Down's Syndrome. He has a pacer and a h/o CAD. His mom & Dad were at bedside today. Last night Gage told his family he was having chest pain and they brought him to the ER. Due to hi Down's, He is somewhat difficult to understand. He reports the pain is now gone. This am the pain returned. he had NTP in [facility] and Morphine 1mg was given, resolving his sx. Telemetry shows NSR and atrial paced rhythm. Addendum: Trops x 3 negative. Stress test negative, cleared by cardiology for D/C. Patient Condition at Discharge: Fair Plan - Discharge Summary Discharge Rx Participant: No New Discharge Prescriptions: Continue RX: Levothyroxine Sodium [Synthroid] 50 mcg PO DAILY RX: Cholecalciferol [Vitamin D3 (25 Mcg = 1000 Iu)] 3,000 unit PO DAILY RX: Multivitamins, Thera [Multivitamin (formulary)] 1 tab PO DAILY RX: Metoprolol Succinate [Toprol XL] 50 mg PO DAILY RX: Allopurinol [Zyloprim] 300 mg PO DAILY RX: ALPRAZolam [Xanax] 0.25 mg PO Q6H PRN PRN Reason: Anxiety RX: Ciprofloxacin-Dexameth [Ciprodex Otic Susp] 4 drops BOTH EARS BID PRN PRN Reason: INFECTION RX: Colchicine [Colcrys] 0.6 mg PO BID PRN PRN Reason: GOUT RX: Pravastatin Sodium [Pravachol] 20 mg PO DAILY Discharge Medication List RX: Levothyroxine Sodium [Synthroid] 50 mcg PO DAILY 10/01/13 [History] RX: Cholecalciferol [Vitamin D3 (25 Mcg = 1000 Iu)] 3,000 unit PO DAILY 01/14/16 [History] RX: Multivitamins, Thera [Multivitamin (formulary)] 1 tab PO DAILY 10/11/16 [History] RX: ALPRAZolam [Xanax] 0.25 mg PO Q6H PRN 07/28/19 [History] RX: Allopurinol [Zyloprim] 300 mg PO DAILY 07/28/19 [History] RX: Ciprofloxacin-Dexameth [Ciprodex Otic Susp] 4 drops BOTH EARS BID PRN 07/28/19 [History] RX: Colchicine [Colcrys] 0.6 mg PO BID PRN 07/28/19 [History] RX: Metoprolol Succinate [Toprol XL] 50 mg PO DAILY 07/28/19 [History] RX: Pravastatin Sodium [Pravachol] 20 mg PO DAILY 07/28/19 [History] Follow up Appointment(s)/Referral(s): Russ Lawton MD [STAFF PHYSICIAN] - 08/16/19 3:30 pm (Monday) Juan C Ardon MD [Primary Care Provider] - 08/01/19 3:30 pm () Patient Instructions/Handouts: Chest Pain (DC), Nuclear Stress Test (DC) Discharge Disposition: HOME SELF-CARE
--- NOTE | 2019-07-29 17:35 | ECHOS ---
STRESS ECHOCARDIOGRAM LUMASON: @@ Vial INDICATIONS: Chest pain. MEDICATIONS: BASELINE HEART RATE: 68 BASELINE BLOOD PRESSURE: 130/84 MAXIMUM HEART RATE: 107 MAXIMUM BLOOD PRESSURE: 130/84 85% MPHR: 150 100% MPHR: 177 METS: MAXIMUM STAGE REACHED: 4 TOTAL EXERCISE TIME: 11:00 CLINICAL INFORMATION: This is a 43-year-old male patient admitted with chest pain. He underwent a dobutamine stress echo. Baseline heart rate 68 beats per minute. Baseline blood pressure 130/84 mmHg. Baseline 12-lead ECG shows sinus rhythm with normal KS interval, right bundle branch block pattern, left anterior fascicular block. The patient received dobutamine per protocol. Peak heart rate 107 beats per minute. Normal blood pressure response to exercise. There was no ECG evidence for ischemia. No arrhythmias were noted. Baseline 2D echo images showed normal LV size and systolic function without segmental wall motion abnormalities. At peak exercise, there was excellent augmentation of overall LV contractility without development of any wall motion abnormalities. At recovery, regional global LV systolic function remained normal. Please note Lumason contrast was used. IMPRESSION: No ECG or echocardiographic evidence for ischemia. MMODL / IJN: [id number] /
--- NOTE | 2019-08-01 17:00 | ECHOF ---
Referral Reason:chest pain MEASUREMENTS -------- HEIGHT: 162.6 cm WEIGHT: 91.2 kg BP: 114/68 IVSd: 1.2 cm (0.6 - 1.1) LVIDd: 4.2 cm (3.9 - 5.3) LVPWd: 1.1 cm (0.6 - 1.1) IVSs: 1.7 cm LVIDs: 2.4 cm LVPWs: 1.4 cm LA Diam: 2.6 cm (2.7 - 3.8) RVIDd: 2.2 cm (< 3.3) Ao Diam: 3.0 cm (2.0 - 3.7) AV Cusp: 1.9 cm (1.5 - 2.6) EPSS: 1.2 cm MV E Ry: 0.88 m/s MV DecT: 604 ms MV A Ry: 0.87 m/s MV E/A Ratio: 1.01 RAP: 5.00 mmHg RVSP: 31.77 mmHg MV EF SLOPE: 29.67 mm/s (70 - 150) MV EXCURSION: 12.88 mm (> 18.000) FINDINGS -------- Paced rhythm. This was a technically adequate study. The left ventricular size is normal. There is borderline concentric left ventricular hypertrophy. Overall left ventricular systolic function is low-normal with, an EF between 50 - 55 %. The right ventricle is normal in size. The left atrial size is normal. The right atrium is normal in size. Interatrial and interventricular septum intact. The aortic valve is bicuspid. The mitral valve leaflets are mildly thickened. Moderate mitral annular calcification present. Mi [id number] mitral regurgitation is present. Cannot exclude mitral valve prolapse. MV Repair. Mild tricuspid regurgitation present. Right ventricular systolic pressure is normal at < 35 mmHg. There is no pulmonic regurgitation present. The aortic root size is normal. Normal inferior vena cava with normal inspiratory collapse consistent with estimated right atrial pre ssure of 5 mmHg. There is no pericardial effusion. CONCLUSIONS -------- 1. Paced rhythm. 2. This was a technically adequate study. 3. The left ventricular size is normal. 4. There is borderline concentric left ventricular hypertrophy. 5. Overall left ventricular systolic function is low-normal with, an EF between 50 - 55 %. 6. The right ventricle is normal in size. 7. The left atrial size is normal. 8. The right atrium is normal in size. 9. Interatrial and interventricular septum intact. 10. The aortic valve is bicuspid. 11. The mitral valve leaflets are mildly thickened. 12. Moderate mitral annular calcification present. 13. [id number] mitral regurgitation is present. 14. Cannot exclude mitral valve prolapse. 15. MV Repair. 16. Mild tricuspid regurgitation present. 17. Right ventricular systolic pressure is normal at < 35 mmHg. 18. There is no pulmonic regurgitation present. 19. The aortic root size is normal. 20. Normal inferior vena cava with normal inspiratory collapse consistent with estimated right atrial pressure of 5 mmHg. 21. There is no pericardial effusion. [employer]OCK CLERK: PAM Young
== END 2019-07-29 17:43 | disposition home or self-care (01) ==
LOC: EC 15:14 → 1SOBS 16:48 → 3SCARD 17:05
PROVIDERS: ADMIT Family Medicine; ATTEND Family Medicine
DX: I20.0 Unstable angina (principal); M10.9 Gout, unspecified; I10 Essential (primary) hypertension; E78.00 Pure hypercholesterolemia, unspecified; E03.9 Hypothyroidism, unspecified; Q90.9 Down syndrome, unspecified; Z82.49 Family history of ischemic heart disease and other diseases of the circulatory system; Z95.0 Presence of cardiac pacemaker; I45.10 Unspecified right bundle-branch block; I44.30 Unspecified atrioventricular block; R00.1 Bradycardia, unspecified; H91.90 Unspecified hearing loss, unspecified ear; F41.9 Anxiety disorder, unspecified; Z80.8 Family history of malignant neoplasm of other organs or systems; Z79.890 Hormone replacement therapy; Z79.899 Other long term (current) drug therapy; Z87.74 Personal history of (corrected) congenital malformations of heart and circulatory system
CPT/HCPCS: 96374; 93005 ×2; 99285; 36415; 94760; 93306; 93351; 85379; 80061; 80053; 84443; 83735; 84484 ×2; 85025; 85610; 85730; 71046; G0378 ×2; J1250; J2270; Q9950